=== PATIENT | female | born 1965 | race Caucasian/White ===

== ENCOUNTER → 2016-11-23 | Outpatient (CLI) | payer OTHER | LOC: CT 12:33 | DX: D3A.092 Benign carcinoid tumor of the stomach (principal); D50.9 Iron deficiency anemia, unspecified; D68.61 Antiphospholipid syndrome; D64.9 Anemia, unspecified; I82.542 Chronic embolism and thrombosis of left tibial vein; D48.9 Neoplasm of uncertain behavior, unspecified; E13.42 Other specified diabetes mellitus with diabetic polyneuropathy; R78.9 Finding of unspecified substance, not normally found in blood; R63.4 Abnormal weight loss; R10.9 Unspecified abdominal pain; K76.89 Other specified diseases of liver; R59.0 Localized enlarged lymph nodes | CPT/HCPCS: 74160; J7050; Q9962 ==

== ENCOUNTER → 2021-10-19 | Outpatient (CLI) | payer OTHER ==
[~2021-10-19] MED LIST: COUMADIN 1MG TAB1 MG PO; COUMADIN4 MG PO; NEURONTIN 100100 MG PO; NORCO 10-325 T1 EACH PO; VITAMIN D350000 UNIT PO; VOLTAREN100 GM TP; WARFARIN SODIUM5 MG PO
== END ==
LOC: RAD 14:29
DX: M47.26 Other spondylosis with radiculopathy, lumbar region (principal); M25.572 Pain in left ankle and joints of left foot; M19.071 Primary osteoarthritis, right ankle and foot
CPT/HCPCS: 72110; 73610